=== PATIENT | male | born 1975 | race Hispanic/Latino ===

== ENCOUNTER 2020-02-06 11:07 | Inpatient (IN) | payer SELFPAY ==
[~2020-02-06] VITALS: Ht 175.3 cm; Wt 81.6 kg
[2020-02-06 11:40] LABS: BASOPHILS % (AUTO) 0.7 % (0.0-5.0); EOSINOPHILS % (AUTO) 4.1 % (0.0-8.0); HEMATOCRIT 42.9 % (42-54); LYMPHOCYTES % (AUTO) 27.4 % (21.0-51.0); MEAN CORPUSCULAR HEMOGLOBIN 30.1 pg (27.0-33.0); MEAN CORPUSCULAR HGB CONC 34.7 g/dL (32.0-36.0); MEAN CORPUSCULAR VOLUME 86.7 fL (79-99); MONOCYTES % (AUTO) 7.9 % (3.0-13.0); NEUTROPHILS % (AUTO) 59.7 % (40.0-77.0); PLATELET COUNT (AUTO) 292 K/uL (130-400); RED BLOOD CELL COUNT(AUTO) 4.95 MIL/uL (4.50-6.20); RED CELL DISTRIBUTION WIDTH 11.9 % (11.0-15.5); WHITE BLOOD COUNT (AUTO) 5.9 K/uL (4.8-10.8)
[2020-02-06 12:07] LABS: ALBUMIN 3.8 g/dL (3.5-5.0); BILIRUBIN,TOTAL 1.1 mg/dL (0.2-1.0); TOTAL PROTEIN, SERUM 6.6 g/dL (6.0-8.3)
[2020-02-06 12:10] LABS: INR 0.92 (0.85-1.15); PARTIAL THROMBOPLASTIN TIME 25.2 SEC (26.3-35.5)
[2020-02-06 12:12] LABS: B-TYPE NATRIURETIC PEPTIDE < 5 pg/mL (0-100)
[2020-02-06 12:59] LABS: APPEARANCE,URINE Clear (CLEAR); BILIRUBIN,URINE Negative (NEGATIVE); COLOR,URINE Yellow (YELLOW); GLUCOSE, URINE (UA) >=1000 mg/dL (NEGATIVE); KETONES,URINE Trace mg/dL (NEGATIVE); LEUKOCYTE ESTERASE ,URINE Negative (NEGATIVE); NITRATE,URINE Negative (NEGATIVE); OCCULT BLOOD,URINE Negative (NEGATIVE); PROTEIN,URINE POS 1+ mg/dL (NEGATIVE)
[2020-02-06 13:06] LABS: AMPHET/METH SCREEN,URINE NEGATIVE (NEGATIVE); BARBITURATE SCREEN, URINE NEGATIVE (NEGATIVE); BENZODIAZEPINES SCREEN,URINE NEGATIVE (NEGATIVE); CANNABINOID SCREEN,URINE NEGATIVE (NEGATIVE); COCAINE SCREEN,URINE NEGATIVE (NEGATIVE); OPIATE SCREEN,URINE NEGATIVE (NEGATIVE); PHENCYCLIDINE SCREEN,URINE NEGATIVE (NEGATIVE)
[2020-02-06 13:10] LABS: BACTERIA,URINE Rare /HPF (None Seen); RBC,URINE 0-1 /HPF (0-1); SQUAMOUS EPITHELIAL CELL,UR Rare /HPF (0-2); WBC,URINE 0-1 /HPF (0-1)
[2020-02-06] MEDS ORDERED: MAG HYDROX/AL HYDROX/SIMETH ES 30 ML SUSP UDCUP PO PRN (20:00)
[2020-02-06] MEDS ORDERED: NITROGLYCERIN 0.4 MG SL TAB SL PRN (20:00)
[2020-02-06] MEDS ORDERED: ZOLPIDEM TARTRATE 5 MG TAB PO PRN (20:00)
[2020-02-06] MEDS: SODIUM CHLORIDE 0.9% 1000ML 1,000 ML IV SCH (20:00)
[2020-02-06] MEDS ORDERED: LACTULOSE 20 GM/30 ML UDCUP PO PRN (20:00)
[2020-02-06] MEDS ORDERED: ONDANSETRON HCL 4 MG/2 ML VIAL IV PRN (20:00)
[2020-02-06] MEDS ORDERED: ACETAMINOPHEN 325 MG TAB PO PRN ×2 (20:00)
[2020-02-06] MEDS ORDERED: MORPHINE SULFATE 2 MG/ML 1ML SYG IV PRN (20:00)
[2020-02-06 20:40] LABS: CHOLESTEROL 133 mg/dL (<200); HDL CHOLESTEROL 96 mg/dL (29-71); LDL DIRECT 73 mg/dL (0-99); TRIGLYCERIDES 200 mg/dL (30-200)
[2020-02-06] MEDS: FAMOTIDINE/PF 20 MG/2 ML VIAL IV SCH (21:00)
[2020-02-06] MEDS: INSULIN HUMULIN R 100 UNIT/ML 3ML SQ SCH (21:00)
[2020-02-06] MEDS ORDERED: INSULIN HUMULIN R 100 UNIT/ML 3ML ONE (21:23)
[2020-02-06] MEDS ORDERED: ATORVASTATIN CALCIUM 40 MG TABLET ONE (22:13)
[2020-02-06] MEDS ORDERED: FAMOTIDINE/PF 20 MG/2 ML VIAL IV ONE (22:14)
[2020-02-06] MEDS ORDERED: SODIUM CHLORIDE 0.9% 1000ML 1,000 ML IV ONE (22:15)
[2020-02-06 22:40] VITALS: BP 141/86
[2020-02-06] MEDS ORDERED: SIMV-43 PO (22:59)
[2020-02-06] MEDS ORDERED: LOSA25TA41 PO (22:59)
[2020-02-06] MEDS ORDERED: METF-446 PO (22:59)
[2020-02-06] MEDS ORDERED: GABA300C PO (22:59)
[2020-02-06] MEDS ORDERED: FLU VACC QS2020-21(6MOS UP)/PF 60 MCG/0.5 ML ML IM ONE (23:15)
[2020-02-06] MEDS: FLU VACC QS2020-21(6MOS UP)/PF 60 MCG/0.5 ML ML IM ONE ×2 (23:43→23:50)
--- NOTE | 2020-02-06 23:43 | NUR ---
GAVE PATIENT FLU SHOT ON THE RIGHT DELTOID. 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 LOT NUMBER IS [id number] AND EXPIRATION IS SEPTEMBER 22 2020.
[2020-02-07 03:47] VITALS: BP 146/82
[2020-02-07 05:03] LABS: BASOPHILS % (AUTO) 0.9 % (0.0-5.0); EOSINOPHILS % (AUTO) 3.8 % (0.0-8.0); HEMATOCRIT 40.7 % (42-54); LYMPHOCYTES % (AUTO) 39.6 % (21.0-51.0); MEAN CORPUSCULAR HEMOGLOBIN 29.9 pg (27.0-33.0); MEAN CORPUSCULAR HGB CONC 34.4 g/dL (32.0-36.0); MONOCYTES % (AUTO) 8.6 % (3.0-13.0); NEUTROPHILS % (AUTO) 46.9 % (40.0-77.0); PLATELET COUNT (AUTO) 280 K/uL (130-400); RED BLOOD CELL COUNT(AUTO) 4.68 MIL/uL (4.50-6.20); RED CELL DISTRIBUTION WIDTH 11.9 % (11.0-15.5); WHITE BLOOD COUNT (AUTO) 5.8 K/uL (4.8-10.8)
[2020-02-07 05:44] LABS: POTASSIUM 3.6 mmol/L (3.5-5.1)
[2020-02-07] MEDS: INSULIN HUMULIN R 100 UNIT/ML 3ML SQ SCH ×4 (05:44→20:14)
[2020-02-07 05:45] LABS: ALBUMIN 3.4 g/dL (3.5-5.0); CREATININE 0.9 mg/dL (0.5-1.5); TOTAL PROTEIN, SERUM 6.1 g/dL (6.0-8.3)
[2020-02-07] MEDS ORDERED: POTASSIUM CHLORIDE 20MEQ/100ML 100 ML IV PRN (06:00)
[2020-02-07] MEDS ORDERED: LIDOCAINE HCL-MPF 1% 2ML VIAL IV PRN (06:00)
[2020-02-07] MEDS: POTASSIUM CHLORIDE 10% ELIXIR 20 MEQ/15 ML UDCUP PO PRN ×2 (06:00→22:05)
[2020-02-07] MEDS: SODIUM CHLORIDE 0.9% 1000ML 1,000 ML IV SCH ×2 (06:06→17:21)
[2020-02-07] MEDS ORDERED: ATORVASTATIN CALCIUM 40 MG TABLET PO SCH (09:00)
[2020-02-07] MEDS ORDERED: CLOPIDOGREL BISULFATE 75 MG TAB PO SCH (09:00)
[2020-02-07 09:22] VITALS: BP 131/83
[2020-02-07] MEDS: ASPIRIN 81MG TAB.CHEW PO SCH (10:40)
[2020-02-07] MEDS: FAMOTIDINE/PF 20 MG/2 ML VIAL IV SCH ×2 (10:43→20:10)
[2020-02-07 11:54] VITALS: BP 147/83
[2020-02-07] MEDS ORDERED: DIPHENHYDRAMINE HCL 25 MG CAPSULE ONE (12:30)
[2020-02-07] MEDS ORDERED: LORAZEPAM 0.5 MG TABLET PO SCH (12:30)
[2020-02-07] MEDS ORDERED: DIPHENHYDRAMINE HCL 25 MG CAPSULE PO SCH (12:30)
--- NOTE | 2020-02-07 13:05 | NUR ---
[facility] DC Board Handler met with pt discussed dc plans. Pt is independent prior to admission, lives at home with spouse. Has a glucometer. Denies any other equipments/services. Feels safe to go back home, still drives, spouse able to assist with transportation and needs as necessary. DC plan to home once stable. Given [facility] packet. CM to continue to follow up. Addendum: 02/07/20 at 1307 by ROBBI MCKEON LVN Amended: Links added.
--- NOTE | 2020-02-07 14:42 | NUR ---
DYSPHAGIA EVAL COMPLETED. -S/S OF ASPIRATION. REVOMMEND REGULAR TEXTURE, THIN LIQUIDS' PILLS WHOLE WITH LIQUIDS. Addendum: 02/07/20 at 1443 by SANTO EL, [facility] Amended: Links added.
--- NOTE | 2020-02-07 14:46 | NUR ---
COGNITIVE-LINGUISTIC EVALUATION COMPLETED. WITHIN FUNCTIONAL LIMITS. Pt AAOX3. Pt REQUESTS WANTS AND NEEDS INDEPENDENTLY. Pt INTELLIGIBLE AT 100% ACCURACY TO THE UNFAMILIAR LISTENER. Pt COMMUNICATING AT CONVERSATIONAL LEVEL WITH NO DEFICITS IDENTIFIED AT THIS TIME. Pt COMPLETED COGNITIVE-LINGUISTIC EVALUATION TARGETING: ORIENTATION, ATTENTION/CONCENTRATION, MEMORY (IMMEDIATE, SHORT-TERM AND LONG-TERM), PROBLEM SOLVING, LOGIC/REASONING/INFERENCE, THOUGHT ORGANIZATION, FUNCTIONAL MATH AND TELLING TIME. Pt ABLE TO COMPLETE TASKS WITH CORRECT AND TIMELY ANSWERS TO ALL SECTIONS. G-CODES SPOKEN LANGUAGE EXPRESSION: [id number] Addendum: 02/07/20 at 1447 by SANTO EL [facility] Amended: Links added.
[2020-02-07 16:37] VITALS: BP 130/84
[2020-02-07 20:00] VITALS: BP 146/80
--- NOTE | 2020-02-07 20:10 | NUR ---
MEDS SHIFT ASSESSMENT DONE, PLEASE REFER TO CHART. DUE MEDS ADMINISTERED, TOLERATED WELL. PROVIDED SNACK FOR THE NIGHT. CALL LIGHT WITHIN REACH. WILL MONITOR PT. Addendum: 02/07/20 at 2216 by DAVI RODRIGUEZ RN RN Amended: Links added.
[2020-02-07] MEDS: GABAPENTIN 300 MG CAPSULE PO SCH (20:37)
[2020-02-07] MEDS ORDERED: SIMVASTATIN 20 MG TABLET PO SCH (21:00)
--- NOTE | 2020-02-07 22:05 | NUR ---
MEDS PT ALREADY IN BED, TRYING TO SLEEP. LAST DOSE OF POTASSIUM PER PROTOCOL ADMINISTERED, TOLERATED WELL. IVF SALINE LOCKED AT THIS TIME PER MD ORDER. ENCOURAGED TO REST AND SLEEP. WILL CONTINUE TO MONITOR.
[2020-02-08] VITALS: BP 121/73
--- NOTE | 2020-02-08 02:00 | NUR ---
ROUNDS PT RESTING WELL, FAIRLY ASLEEP. NO DISTRESS NOTED. KEPT UNDISTURBED FOR NOW. WILL MONITOR PT. CALL LIGHT WITHIN REACH.
[2020-02-08 03:45] VITALS: BP 122/79
[2020-02-08 03:49] LABS: BASOPHILS % (AUTO) 0.5 % (0.0-5.0); EOSINOPHILS % (AUTO) 4.4 % (0.0-8.0); HEMATOCRIT 40.7 % (42-54); LYMPHOCYTES % (AUTO) 29.4 % (21.0-51.0); MEAN CORPUSCULAR HEMOGLOBIN 30.1 pg (27.0-33.0); MEAN CORPUSCULAR HGB CONC 34.9 g/dL (32.0-36.0); MEAN CORPUSCULAR VOLUME 86.4 fL (79-99); MONOCYTES % (AUTO) 10.9 % (3.0-13.0); NEUTROPHILS % (AUTO) 54.6 % (40.0-77.0); PLATELET COUNT (AUTO) 271 K/uL (130-400); RED BLOOD CELL COUNT(AUTO) 4.71 MIL/uL (4.50-6.20); RED CELL DISTRIBUTION WIDTH 11.7 % (11.0-15.5); WHITE BLOOD COUNT (AUTO) 6.6 K/uL (4.8-10.8)
[2020-02-08 03:59] LABS: CREATININE 0.9 mg/dL (0.5-1.5); POTASSIUM 3.9 mmol/L (3.5-5.1)
--- NOTE | 2020-02-08 05:43 | NUR ---
ROUNDS PT RESTING WELL, FAIRLY ASLEEP. NO DISTRESS NOTED. NO COMPLAINTS VERBALIZED. KEPT RESTED. FOR MORE CARE.
[2020-02-08] MEDS: INSULIN HUMULIN R 100 UNIT/ML 3ML SQ SCH ×2 (06:02→11:14)
[2020-02-08] MEDS: FAMOTIDINE/PF 20 MG/2 ML VIAL IV SCH (08:32)
[2020-02-08] MEDS: GABAPENTIN 300 MG CAPSULE PO SCH (08:39)
[2020-02-08] MEDS: ASPIRIN 81MG TAB.CHEW PO SCH (08:39)
[2020-02-08 08:59] VITALS: BP 125/83
[2020-02-08] MEDS ORDERED: LOSARTAN 50 MG TABLET PO SCH (09:00)
[2020-02-08] MEDS ORDERED: NON-FORMULARY MEDICATION 1 EACH (Losartan Potassium 25 MG) PO SCH (09:00)
[2020-02-08 11:52] VITALS: BP 132/87
== END 2020-02-08 13:38 | disposition home or self-care (01) | DRG 69 ==
LOC: EDH 11:07 → EDHIP 11:08 → UNDOADMIN 19:59 → EDHIP 19:59 → 3BH 21:37
PROVIDERS: ADMIT Hospitalist; ATTEND Hospitalist
DX: G45.9 Transient cerebral ischemic attack, unspecified (principal); Z23 Encounter for immunization; E78.5 Hyperlipidemia, unspecified; R29.702 NIHSS score 2; I10 Essential (primary) hypertension; E66.9 Obesity, unspecified; Z79.4 Long term (current) use of insulin; E11.65 Type 2 diabetes mellitus with hyperglycemia; Z68.26 Body mass index [BMI] 26.0-26.9, adult
CPT/HCPCS: 36415; 70450; 70544; 70551; 71045; 80048; 80053; 80061; 80305; 81001; 82550; 82948; 83880; 84484; 85025; 85610; 85730; 92522; 92610; 93005; 93306; 93356; G0008; G0378; J1815; J3490; J7030; Q0163; Q2035